=== PATIENT | female | born 1960 | race Caucasian/White ===

== ENCOUNTER 2024-11-25 08:29 | Day surgery (SDC) | payer MEDICARE ==
[~2024-11-25 08:29] MED LIST: Tranexamic Acid 1,000 MG/10 ML Vial ONE; VANCOmycin 1 GM SDV ONE
[2024-11-25] MEDS ORDERED: Midazolam 1 MG/ML 2 ML SDV ONE (08:58)
[2024-11-25] MEDS ORDERED: propofoL 500 MG/50 ML 50 ML ONE (08:58)
[2024-11-25] MEDS ORDERED: fentaNYL 100 MCG/2 ML SDV ONE (08:58)
[2024-11-25] MEDS ORDERED: Chloroprocaine 3% 30 MG/ML 20 ML SDV ONE (08:59)
[2024-11-25] MEDS: Lactated Ringers 1,000 ML IV SCH (09:10)
[2024-11-25] MEDS: Scopalamine 1mg/3day Transdermal Patch TRDERM PRN (09:25)
[2024-11-25] MEDS ORDERED: Sodium Chloride 0.9% 10 ML Syringe FLUSH PRN (09:26)
[2024-11-25] MEDS ORDERED: Sodium Chloride 0.9% 10 ML Syringe FLUSH SCH (09:45)
[2024-11-25] MEDS ORDERED: ceFAZolin 2 GM Vial ONE (09:48)
[2024-11-25] MEDS ORDERED: ePHEDrine 50 MG/ML SDV ONE (10:29)
[2024-11-25] MEDS ORDERED: Lactated Ringers 1,000 ML IV ONE (10:30)
[2024-11-25] MEDS: Morphine 8 MG, EPINEPHrine 0.3 MG, Cefuroxime 750 MG, Ketorolac 30 MG, Sodium Chloride ... PRN (11:18)
[2024-11-25] MEDS: Tranexamic Acid 1,000 MG/10 ML Vial ONE (11:18)
[2024-11-25] MEDS: VANCOmycin 1 GM SDV ONE (11:18)
[2024-11-25] MEDS: fentaNYL 100 MCG/2 ML SDV IVPUSH PRN (11:52)
[2024-11-25] MEDS: HYDROmorphone 0.5 MG/0.5 ML Syringe IVPUSH PRN (12:16)
[2024-11-25] MEDS: oxyCODONE 5 MG Tab PO PRN (12:30)
[2024-11-25] MEDS: Ondansetron 4 MG/2 ML SDV IVPUSH PRN (13:00)
== END 2024-11-25 15:35 | disposition home or self-care (01) ==
LOC: JD.SDS 08:29
PROVIDERS: ATTEND Orthopaedic Surgery
DX: M16.12 Unilateral primary osteoarthritis, left hip (principal); I10 Essential (primary) hypertension; E55.9 Vitamin D deficiency, unspecified; Z79.899 Other long term (current) drug therapy; Z88.5 Allergy status to narcotic agent
CPT/HCPCS: 0055T; 27130; 73501; 97116; 97161; 97530; A9270; C1713; C1776; J0171; J0690; J0697; J1885; J2250; J2272; J2401; J2405; J2704; J3010; J7120; 01214; J1171; J3370; J3490

== ENCOUNTER 2025-05-21 09:32 | Day surgery (SDC) | payer MEDICARE ==
[~2025-05-21 09:32] MED LIST changes: +Sodium Chloride 0.9% 10 ML Syringe FLUSH PRN; +Sodium Chloride 0.9% 10 ML Syringe FLUSH SCH; -Tranexamic Acid 1,000 MG/10 ML Vial ONE; -VANCOmycin 1 GM SDV ONE
[2025-05-21] MEDS: Lactated Ringers 1,000 ML IV SCH (10:00)
[2025-05-21] MEDS: EPINEPHrine 1 MG/ML SDV ONE (11:20)
[2025-05-21] MEDS ORDERED: Midazolam 1 MG/ML 2 ML SDV ONE (11:22)
[2025-05-21] MEDS ORDERED: fentaNYL 100 MCG/2 ML SDV ONE ×2 (11:22→11:36)
[2025-05-21] MEDS ORDERED: propofoL 500 MG/50 ML 50 ML ONE (11:22)
[2025-05-21] MEDS ORDERED: Ondansetron 4 MG/2 ML SDV ONE (11:34)
[2025-05-21] MEDS ORDERED: Dexamethasone 4 MG/ML 5 ML MDV ONE (11:34)
[2025-05-21] MEDS ORDERED: Propofol 200 MG/20 ML SDV ONE (11:38)
[2025-05-21] MEDS ORDERED: fentaNYL 100 MCG/2 ML SDV IVPUSH PRN (11:42)
[2025-05-21] MEDS ORDERED: Ondansetron 4 MG/2 ML SDV IVPUSH PRN (11:42)
[2025-05-21] MEDS ORDERED: Ketamine HCL/NACL, ISO-OSM 50 MG/5 ML Syringe ONE (11:45)
[2025-05-21] MEDS ORDERED: Ketorolac 30 MG/ML SDV ONE (11:53)
== END 2025-05-21 15:39 | disposition home or self-care (01) ==
LOC: JD.SDS 09:32
PROVIDERS: ATTEND Orthopaedic Surgery
DX: S83.281A Other tear of lateral meniscus, current injury, right knee, initial encounter (principal); M94.261 Chondromalacia, right knee; I10 Essential (primary) hypertension; Z88.6 Allergy status to analgesic agent; Z79.82 Long term (current) use of aspirin; Z88.5 Allergy status to narcotic agent; Z79.899 Other long term (current) drug therapy; X58.XXXA Exposure to other specified factors, initial encounter
CPT/HCPCS: 29881; J0169; J0665; J0690; J1100; J1885; J2003; J2250; J2405; J2704; J3010; J7120; 01400; J3490